=== PATIENT | female | born 1960 | race Hispanic/Latino ===

== ENCOUNTER 2016-07-14 20:00 | Emergency (ER) | payer OTHER ==
[~2016-07-14] VITALS: Ht 162.6 cm; Wt 74.8 kg
--- NOTE | 2016-07-14 21:14 | ED HEAD/FACIAL INJ COMPLAINT ---
History of Present Illness General Chief Complaint: Facial or Head Injury Stated Complaint: HEAD LACERATION Source: patient Exam Limitations: no limitations Vital Signs & Intake/Output Vital Signs & Intake/Output Vital Signs Date Time Temp Pulse Resp B/P B/P Pulse O2 O2 Flow FiO2 Mean Ox Delivery Rate 07/14 2311 80 152/80 07/14 2124 80 148/99 07/15 2119 Room Air 07/14 2020 97.7 86 20 156/105 97 Room Air Allergies Coded Allergies: No Known Drug Allergies (NKDA 07/14/16) Reconcile Medications Calcium Carb/D3/Magnesium/Zinc (Rich Mag Zinc + D Tablet) (Unknown Strength) TABLET (Unknown Dose) PO DAILY SUPPLEMENT (Reported) Multivitamin (Multi-Day Vitamins) 1 EACH TABLET 1 TAB PO DAILY SUPPLEMENT ( Reported) Triage Note: PT TO ED C/O LACERATION TO BACK/TOP OF HEAD S/P HITTING A DOOR FRAME APPROX 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 LAST TETANUS APPROX 10 YRS AGO. DENIES LOC Triage Nurses Notes Reviewed? yes Onset: Abrupt Severity: mild Severity Numbers: 3 Location: occipital Method of Injury: direct blow, fall Loss of Consciousness: no loss of consciousness HPI: Patient is a 55-year-old female who presents emergency room stating that today she was running after her dog in her [place] [address] wearing socks were she subsequently lost her balance and fell backwards striking the posterior aspect of her head to the corner of a door frame resulting in a laceration and bleeding. Bleeding was controlled prior to arrival. Tetanus is unknown. Denies any loss of consciousness. Does complain of 3/10 localized headache with mild blurred vision and dizziness and nausea however no emesis has occurred. states the patient is acting at baseline (ODETTE OSBORNE) Past History Travel History Traveled to [place] past 21 day No Medical History Any Pertinent Medical History? see below for history Cardiovascular: hypertension Surgical History Surgical History: non-contributory Psychosocial History What is your primary language Serbian Tobacco Use: Never used ETOH Use: occasional use Illicit Drug Use: denies illicit drug use Family History Hx Contributory? No (ODETTE OSBORNE) Review of Systems Review of Systems Constitutional: Reports: no symptoms. EENTM: Reports: no symptoms. Respiratory: Reports: no symptoms. Cardiovascular: Reports: no symptoms. GI: Reports: no symptoms. Genitourinary: Reports: no symptoms. Musculoskeletal: Reports: no symptoms. Skin: Reports: no symptoms. Neurological/Psychological: Reports: see HPI, headache. Hematologic/Endocrine: Reports: see HPI, bleeding. Immunologic/Allergic: Reports: no symptoms. All Other Systems: Reviewed and Negative (ODETTE OSBORNE) Physical Exam Physical Exam General Appearance: no apparent distress, alert, comfortable Cranial Nerves: normal hearing, normal speech Comments: Well-developed well-nourished person in no acute distress HEENT: Normal EENT exam, extraocular motion intact, no nystagmus. Pupils equally round and reactive to light and accommodation. Nose is atraumatic. External auditory canal and Tympanic membranes clear. Pharynx normal. No swelling or edema. Neck: Supple, no lymphadenopathy, normal range of motion without pain or tenderness No central spinous tenderness Back: Nontender, no CVA tenderness. Cardiovascular: Regular rate and rhythms no murmurs rubs or gallops, normal JVP Respiratory: Chest nontender. No respiratory distress.breath sounds clear to auscultation bilaterally Abdomen: Soft, nontender nondistended, no appreciable organomegaly. Normal bowel sounds. No ascites Extremity: No edema, no calf tenderness to palpation, normal and equal pulses. Neuro: Alert oriented x3, motor sensory normal, cranial nerves II through XII grossly intact. Negative cerebellar testing negative Romberg Skin: No appreciable rash on exposed skin, skin is warm and dry. Psych: Mood and affect is normal, memory and judgment is normal. Diagram Head: 1) 5 cm clean linear subcutaneous laceration mildly gaping wound noted mild active bleeding noted (ODETTE OSBORNE) Progress Differential Diagnosis: corneal abrasion, c-spine injury, facial fracture, globe injury, ICH, orbit fracture, skull fracture Plan of Care: Current Medications Sig/Zeny Start time Last Medication Dose Stop Time Status Admin Ibuprofen 600 MG ONCE ONE 07/14 2229 UNVr (Motrin) 07/14 2230 Tetanus/Diphtheria 0.5 ML ONCE ONE 07/14 2229 UNVr Toxoids Adsorbed 07/14 2230 (Decavac) No hemotympanum no basilar skull fractures Patient acting at baseline no severe mechanism injury or headache concerns. Patient acting at baseline no loss of consciousness had occurred Cranial nerves intact No alcohol was on board. No warranting of CT scan images at this time for ICH rule out (ODETTE OSBORNE) Departure Departure Disposition: HOME OR SELF CARE Condition: Stable Clinical Impression Primary Impression: Minor head trauma Secondary Impressions: Concussion, Scalp laceration Referrals: PATIENT HAS NO PRIMARY CARE DR (PCP/Family) Additional Instructions: As discussed for the following 4 days begin applying bacitracin to the area to prevent infection. If you note signs of infection redness, pain, swelling, discharge return to emergency room. Return to the emergency room in 7 days for staple removal. If symptoms worsen or if you develop a new concerning symptom return to emergency room immediately. Departure Forms: Customer Survey General Discharge Information (ODETTE OSBORNE) PA/ORGANISATIONAL PSYCHOLOGIST Co-Sign Statement Statement: ED Attending supervision documentation- [] I saw and evaluated the patient. I have also reviewed all the pertinent lab results and diagnostic results. I agree with the findings and the plan of care as documented in the PA's/ORGANISATIONAL PSYCHOLOGIST's documentation. [x] I have reviewed the ED Record and agree with the PA's/ORGANISATIONAL PSYCHOLOGIST's documentation. [] Additions or exceptions (if any) to the PAs/ORGANISATIONAL PSYCHOLOGIST's note and plan are summarized below: [] (AMELIE WHITE,JUAN R [place]) Procedures Laceration/Wound Repair Laceration/Wound Repair: Wound Location: head Wound's Depth, Shape: linear, subcutaneous Wound Length (cm): 5 Wound Explored: clean, no foreign body removed, irrigated extensively Irrigated w/ Saline (ccs): 500 Betadine Prep? Yes Suture Size/Type: vin Number of Sutures: 6 Layer Closure? No Progress: Sterile water 500 mL peroxide and Betadine was irrigated Margins were revised with staple placement patient tolerated well Bacitracin was applied (ODETTE OSBORNE)
[2016-07-14] MEDS ORDERED: MULTI-DAY VITA1 EACH PO (21:34)
[2016-07-14] MEDS ORDERED: CAL MAG ZINC +1 EACH PO (21:35)
[2016-07-14 23:11] VITALS: BP 152/80
== END 2016-07-14 23:12 ==
LOC: ERH 20:00
DX: S01.01XA Laceration without foreign body of scalp, initial encounter (principal); S06.0X0A Concussion without loss of consciousness, initial encounter; S09.90XA Unspecified injury of head, initial encounter; W01.198A Fall on same level from slipping, tripping and stumbling with subsequent striking against other object, initial encounter; Y92.009 Unspecified place in unspecified non-institutional (private) residence as the place of occurrence of the external cause; Y93.02 Activity, running
CPT/HCPCS: 90471; 90714

== ENCOUNTER 2016-07-22 06:46 | Emergency (ER) | payer OTHER ==
[~2016-07-22] VITALS: Ht 162.6 cm; Wt 74.4 kg
[~2016-07-22 06:46] MED LIST: CAL MAG ZINC +1 EACH PO; MULTI-DAY VITA1 EACH PO
[2016-07-22 06:55] VITALS: BP 150/90
--- NOTE | 2016-07-22 07:36 | ED ANIMAL BITE/WOUND CHECK ---
History of Present Illness General Chief Complaint: Suture Removal/Wound Recheck Stated Complaint: HERE FOR SUTURE REMOVAL Source: patient, family, old records Exam Limitations: no limitations Vital Signs & Intake/Output Vital Signs & Intake/Output Vital Signs Date Time Temp Pulse Resp B/P B/P Pulse O2 O2 Flow FiO2 Mean Ox Delivery Rate 07/22 0655 98.0 85 18 150/90 97 Room Air Room Air Allergies Coded Allergies: No Known Drug Allergies (NKDA 07/14/16) Reconcile Medications Calcium Carb/D3/Magnesium/Zinc (Rich Mag Zinc + D Tablet) (Unknown Strength) TABLET (Unknown Dose) PO DAILY SUPPLEMENT (Reported) Multivitamin (Multi-Day Vitamins) 1 EACH TABLET 1 TAB PO DAILY SUPPLEMENT ( Reported) Triage Note: TRIAGE: 55 Y/O FEMALE PRESENTS FOR 6 VIN TO BE REMOVED. VIN HAD BEEN PLACED 07/14/2016. DENIES ISSUES TO SITE WITH EXCEPTION OF ITCHINESS. Triage Nurses Notes Reviewed? yes Onset: Last week Duration: day(s):, better Timing: recent history Injury Environment: home Is Injury an Animal Bite? No Severity: mild No Modifying Factors: none LMP (ages 10-50): post menopausal : No Patient currently breastfeeds: No HPI: Days prior to admission patient slipped and fell striking the back of her head preceding 6 vin. She denies fever chills nausea vomiting diarrhea abdominal pain chest pain shortness breath headache dysuria rash bleeding wound discharge. Past History Travel History Traveled to [place] past 21 day No Medical History Any Pertinent Medical History? see below for history Cardiovascular: hypertension Tetanus Vaccine: 07/14/16 Surgical History Surgical History: non-contributory Psychosocial History What is your primary language Bengali Tobacco Use: Never used ETOH Use: occasional use Illicit Drug Use: denies illicit drug use Family History Hx Contributory? No Review of Systems Review of Systems Constitutional: Reports: no symptoms. EENTM: Reports: no symptoms. Respiratory: Reports: no symptoms. Cardiovascular: Reports: no symptoms. GI: Reports: no symptoms. Genitourinary: Reports: no symptoms. Musculoskeletal: Reports: no symptoms. Skin: Reports: see HPI. Neurological/Psychological: Reports: no symptoms. Hematologic/Endocrine: Reports: no symptoms. Immunologic/Allergic: Reports: no symptoms. All Other Systems: Reviewed and Negative Physical Exam Physical Exam General Appearance: well developed/nourished, mild distress Head: atraumatic Eyes: Bilateral: PERRL, EOMI. Ears, Nose, Throat: normal pharynx, normal ENT inspection, hearing grossly normal Neck: normal inspection, supple Respiratory: normal breath sounds Cardiovascular: regular rate/rhythm Peripheral Pulses: 4+ carotid (R), 4+ carotid (L) Gastrointestinal: soft, non-tender Back: normal inspection Extremities: normal range of motion Neurologic/Psych: awake, alert, oriented x 3, normal mood/affect Skin: intact, normal color, warm/dry Lymphatic: no anterior cervical sarmad Progress Differential Diagnosis: abscess, cellulitis Plan of Care: Staple removal x 6 without complication Departure Departure Time of Disposition: 735 Disposition: HOME OR SELF CARE Condition: Stable Clinical Impression Primary Impression: Removal of vin Referrals: PATIENT HAS NO PRIMARY CARE DR (PCP/Family) Departure Forms: Customer Survey General Discharge Information
== END 2016-07-22 07:40 ==
LOC: ERH 06:46
DX: S01.01XA Laceration without foreign body of scalp, initial encounter (principal); W19.XXXA Unspecified fall, initial encounter; Y92.9 Unspecified place or not applicable; Y93.9 Activity, unspecified
CPT/HCPCS: 99281